=== PATIENT | female | born 1960 | race Caucasian/White ===

== ENCOUNTER → 2017-05-09 | Outpatient (CLI) | payer OTHER ==
[~2017-05-09] MED LIST: ALPRAZOLAM PO; AMBIEN10 MG PO; ASPERDRINK81 MG PO; COGENTIN1 MG PO; LISINOPRIL PO; MEVACOR PO; MULTI VITAMIN1 EACH PO; NATURAL VITA200 UNI1 PO; PERCOCET 7.5-31 EACH PO; PROZAC PO; SEROQUEL PO; [UNRECOGNIZED DRUG - REMARK]
--- NOTE | ~2017-05-09 | CT98 ---
[facility] A Service of [facility] & [facility] & [facility] RADIOLOGY TEXT RESULTS PATIENT: REINA PRINCE LOCATION: [facility] : 62 UNIT #: [id number] AGE: [address]: Edna Painting SEX: F ORDER DR: [id number] [facility] [address] [place], [place] [address] [id number] O MR#: [id number] Acc #: [id number] NAME: REINA PRINCE : 1960 SEX: F STUDY DATE/TIME: 05/09/2017 9:13 UNIT: [facility] ROOM: STUDY DESCRIPTION: CT Lumbar Spine Wo Cont Attending Physician: Hunter Pitts Referring Physician: Hunter Pitts Ordering Physician: Hunter Pitts Primary Care Physician: Aaron Ruiz M.D. MEDICAL IMAGING REPORT This report is preliminary unless electronic signature is present EXAM Lumbar spine CT. COMPARISON 08/16/2014 HISTORY Degenerative disc disease. Chronic back pain for the past 12 years with bilateral leg numbness and tingling. TECHNIQUE Thin section imaging was obtained from the lower thoracic spine to the sacrum and evaluated at bone and soft tissue windows with multiplanar reformats. This CT exam was performed with one or more of the following radiation dose reduction techniques: automatic exposure control, adjustment of mA and/or kV according to patient size, and iterative reconstruction. FINDINGS An epidural catheter is again seen entering the spinal canal at T12-L1. Alignment is satisfactory. Small anterior osteophytes are seen at the upper lumbar levels. At L4-5 there is disc space collapse with gas in the disc. This appearance is not significantly changed from the previous examination. There is no change in alignment. No fractures or destructive bone lesions are seen. No paraspinous soft tissue masses are noted. Postoperative changes in the lamina are seen on the right at L4-5. There is a suggestion of some abnormal soft tissue effacing the ventral aspect of the thecal sac on the right at L4-5 but the images are noisy in this area, and this may simply represent beam hardening artifact. The possibility of a right paracentral disc protrusion at this level is not excluded. IMPRESSION [facility]. [facility] A Service of [facility] & [facility] & [facility] RADIOLOGY TEXT RESULTS PATIENT: REINA PRINCE LOCATION: [facility] : 62 UNIT #: [id number] AGE: [address]: Edna Painting SEX: F ORDER DR: Postoperative changes L4-5 on the right. Question of a right-sided disc protrusion at this level, effacing the ventral aspect of the thecal sac versus beam hardening artifact. This could be further evaluated with MRI or with CT myelography. At the upper lumbar discs there are mild degenerative changes with no significant bulging or herniation. No acute bony abnormalities are seen. Degenerative changes in the L4-5 disc itself on the sagittal reformatted images appear essentially unchanged from the previous scan. Dictated by... Alexi Romero M.D. THIS IS AN ELECTRONICALLY VERIFIED REPORT Alexi Romero M.D. at 05/14/2017 2:13 PM JUAN FRANCISCO/kenneth TD: 05/09/2017 18:58 JOB #: [id number] MEDICAL IMAGING REPORT Page 1 of 1 COPY
== END | disposition home or self-care (01) ==
LOC: CCAT 08:39
DX: M51.36 Other intervertebral disc degeneration, lumbar region (principal); Z98.890 Other specified postprocedural states
CPT/HCPCS: 72131